=== PATIENT | female | born 1960 | race Caucasian/White ===

== ENCOUNTER 2019-07-15 15:33 | Inpatient (IN) | payer BC ==
[~2019-07-15] VITALS: Ht 165.1 cm; Wt 102.8 kg
[2019-07-15 21:16] VITALS: BP 140/63
[2019-07-15] MEDS ORDERED: GLUCAGON FOR INJ 1 MG VIAL (J1610) SC PRN (22:15)
[2019-07-15] MEDS ORDERED: DEXTROSE 50% 50 ML SYRINGE IV PRN (22:15)
[2019-07-15] MEDS ORDERED: GLUCOSE 4 GM CHEW TABLET PO PRN (22:15)
--- NOTE | 2019-07-15 22:15 | HPEPDOC ---
[facility] Medical History & Physical Date of Admission Jul 15, 2019 Date of Service: Jul 15, 2019 Attending Physician: DAVID SADLER MD History and Physical CHIEF COMPLAINT: Transferred from [facility] for GI bleed HISTORY OF PRESENT ILLNESS: 59-year-old female with past medical history of CVA, DVT (on Coumadin), CHF, hypertension, diabetes mellitus and hyperlipidemia is transferred from [facility] for GI bleed. Patient reports feeling fatigued with associated dyspnea for the past month, significantly worsening over the past 2 weeks, to the point where she had difficulty getting out of bed today. She went to [place], her hemoglobin was 6.9, patient's INR is 3.0 on Coumadin. Patient was transferred to [facility] for GI evaluation. Patient denies taking any NSAIDs or drinking excessive alcohol. Patient does report dark stool for the past 2 weeks, no bright red blood per rectum or hematemesis. Patient denies prior history of GI bleed, had a colonoscopy 4 years ago, normal as per patient. Patient has received 2 units of packed blood cells by [facility], no vitamin K or FFP was given as far as I can tell from the records. Patient denies any chest pain, nausea, vomiting, abdominal pain or diarrhea at this time. 10 point review of system is negative except for above PAST MEDICAL HISTORY: 1. CVA. 2. DVT. 3. CHF. 4. Hypertension. 5. Diabetes mellitus. 6. Hyperlipidemia PAST SURGICAL HISTORY: 1. Cholecystectomy. 2. Appendectomy. SOCIAL HISTORY: Smokes - one pack per day for 30 years Social alcohol use. Denies drug use FAMILY HISTORY: Mother had ovarian cancer ALLERGIES: Please see below. HOME MEDICATIONS: Please see below. PHYSICAL EXAMINATION: VITAL SIGNS: Please see below. GENERAL: No distress HEENT: Normocephalic, atraumatic, moist mucous membranes NECK: Supple CARDIOVASCULAR EXAMINATION: S1, S2, no murmurs RESPIRATORY EXAMINATION: Clear to auscultation, no wheezing ABDOMINAL EXAMINATION: Soft, nontender, nondistended, positive bowel sounds EXTREMITIES: Range of motion intact SKIN: No rash NEUROLOGICAL EXAMINATION: Alert and oriented 3, no focal deficits PSYCHIATRIC EXAMINATION: Calm and cooperative LABORATORY DATA: See below. IMAGING: CT head performed a [place], negative for acute intracranial pathology MICROBIOLOGY: Please see below. ASSESSMENT: 59-year-old female with multiple medical comorbidities is sent from [facility] for GI bleed, likely due to anticoagulation. PLAN: 1. GI bleed. Patient on Coumadin, INR 3.0, hemoglobin 6.9, received 2 units of packed red blood cells at [facility], vitamin K 5 mg by mouth 1, 4 units of FFP ordered, discussed with Dr. Moran (gastroneurologist), plan for EGD in the [facility] after INR has been reversed, patient is currently hemodynamically stable. Protonix 80 mg IV 1, followed by 40 mg twice a day, will keep patient nothing by mouth for now. 2. CVA. Continue statin 3. CHF. Hold diuretics for now, we'll monitor volume status given the patient has received packed red blood cells IV fluids and will be receiving FFP. We'll hold off on further IV fluids for now. 4. Diabetes mellitus. Hold home meds, sliding scale insulin every 6 hours. 5. Hypertension. We'll restart home meds when verified. DVT prophylaxis: SCDs/TEDs. GI prophylaxis: Protonix Vital Signs Vital Signs Date Time Temp Pulse Resp B/P (MAP) Pulse Ox O2 Delivery O2 Flow Rate FiO2 07/15/19 21:16 97.1 73 20 140/63 (88) 97 Room Air A-FIB/CHADSVASC A-FIB History Current/History of A-Fib/PAF?: No DAVID SADLER MD Jul 15, 2019 22:15
[2019-07-15] MEDS ORDERED: JANU100T PO (22:40)
[2019-07-15] MEDS ORDERED: ATOR40TA75 PO (22:40)
[2019-07-15] MEDS ORDERED: SLOWTAB2 PO (22:40)
[2019-07-15] MEDS ORDERED: LASI20TA3 PO (22:40)
[2019-07-15] MEDS ORDERED: FOLI400T PO (22:40)
[2019-07-15] MEDS ORDERED: ATEN100T PO (22:40)
[2019-07-15] MEDS ORDERED: GLIM2TAB4 PO (22:40)
[2019-07-15] MEDS ORDERED: B-COTAB25 PO (22:40)
[2019-07-15] MEDS ORDERED: FENO145T7 PO (22:40)
[2019-07-15] MEDS ORDERED: POTA1TAB23 PO (22:40)
[2019-07-15] MEDS ORDERED: TRUL0.5I SC (22:40)
[2019-07-15] MEDS ORDERED: GABA-843 PO (22:40)
[2019-07-15] MEDS ORDERED: PATIENT COMMENTS (22:43)
[2019-07-15 23:45] VITALS: BP 146/58
[2019-07-16] VITALS (14 sets, daily range): BP systolic 120–154; BP diastolic 50–64
[2019-07-16] MEDS ORDERED: PANTOPRAZOLE 40MG INJ (PROTONIX) (C9113) IV ONE
[2019-07-16] MEDS ORDERED: HumaLOG INSULIN (NovoLOG) PER UNIT SC ONE (01:00)
[2019-07-16] MEDS ORDERED: diphenhydrAMINE 25 MG CAP PO SCH (05:00)
[2019-07-16] MEDS: HumaLOG INSULIN (NovoLOG) PER UNIT SC SCH ×4 (06:00→18:00)
[2019-07-16] MEDS ORDERED: HYDROCORTISONE 1% OINTMENT 30GM TOP PRN (06:15)
[2019-07-16 07:15] LABS: HEMATOCRIT 24.6 % (36.0-47.0); HEMOGLOBIN 7.8 g/dl (12.0-15.5); MEAN CORPUSCULAR HEMOGLOBIN 31.1 pg (27.0-33.0); MEAN CORPUSCULAR HGB CONC 31.7 g/dl (32.0-36.5); PLATELET COUNT, AUTOMATED 230 10^3/uL (150-450); RED BLOOD COUNT 2.51 10^6/uL (4.00-5.40)
[2019-07-16 07:27] LABS: PROTHROMBIN TIME 51.9 SECONDS (11.8-14.0)
[2019-07-16 07:28] LABS: PARTIAL THROMBOPLASTIN TIME 50.6 SECONDS (25.0-38.4)
[2019-07-16 07:46] LABS: BILIRUBIN,TOTAL 0.4 MG/DL (0.2-1.0); CALCIUM LEVEL 8.9 MG/DL (8.5-10.1); CREATININE FOR GFR 1.59 MG/DL (0.55-1.30); GLOMERULAR FILTRATION RATE 35.6 (>51); INR 5.7; MAGNESIUM LEVEL 1.9 MG/DL (1.8-2.4); POTASSIUM SERUM 4.2 MEQ/L (3.5-5.1); TOTAL PROTEIN 6.3 GM/DL (6.4-8.2)
[2019-07-16] MEDS: PANTOPRAZOLE 40MG INJ (PROTONIX) (C9113) IV SCH ×2 (07:55→20:54)
[2019-07-16] MEDS ORDERED: PHYTONADIONE 5 MG TAB PO ONE ×2 (09:00)
[2019-07-16] MEDS ORDERED: diphenhydrAMINE INJ 50MG/ML VIAL (J1200) IV ONE (09:00)
[2019-07-16] MEDS: GABAPENTIN 300 MG CAP PO SCH ×2 (09:00→20:54)
[2019-07-16] MEDS ORDERED: FUROSEMIDE 40 MG/4 ML VIAL (J1940) IV ONE (12:00)
--- NOTE | 2019-07-16 12:39 | IPNPDOC ---
Date Seen The patient was seen on 07/16/19. Progress Note HISTORY OF PRESENT ILLNESS: 59-year-old female with past medical history of CVA, DVT (on Coumadin), CHF, hypertension, diabetes mellitus and hyperlipidemia is transferred from [facility] for GI bleed. Patient reports feeling fatigued with associated dyspnea for the past month, significantly worsening over the past 2 weeks, to the point where she had difficulty getting out of bed today. She went to [place], her hemoglobin was 6.9, patient's INR is 3.0 on Coumadin. Patient was transferred to [facility] for GI evaluation. Patient denies taking any NSAIDs or drinking excessive alcohol. Patient does report dark stool for the past 2 weeks, no bright red blood per rectum or he matemesis. Patient denies prior history of GI bleed, had a colonoscopy 4 years ago, normal as per patient. Patient has received 2 units of packed blood cells by [facility], no vitamin K or FFP was given as far as I can tell from the records. Patient denies any chest pain, nausea, vomiting, abdominal pain or diarrhea at this time. 07/16/19 Patient seen in the morning, comfortable, reports fatigue, did not get any sleep overnight. Patient has not had any bowel movement or episodes of vomiting since admission. Patient developed itching after receiving part of her FFP last night, FFP infusion was held after the first unit. She denies any shortness of breath, chest pain, nausea, vomiting, abdominal pain or diarrhea at this time. 10 point review of system is negative except for above PHYSICAL EXAMINATION: VITAL SIGNS: Please see below. GENERAL: No distress HEENT: Normocephalic, atraumatic, moist mucous membranes NECK: Supple CARDIOVASCULAR EXAMINATION: S1, S2, no murmurs RESPIRATORY EXAMINATION: Scattered rhonchi, no wheezing ABDOMINAL EXAMINATION: Soft, nontender, nondistended, positive bowel sounds EXTREMITIES: Trace lower extremity edema SKIN: No rash NEUROLOGICAL EXAMINATION: Alert and oriented 3, no focal deficits PSYCHIATRIC EXAMINATION: Calm and cooperative LABORATORY DATA: See below. IMAGING: CT head performed a [place], negative for acute intracranial pathology MICROBIOLOGY: Please see below. ASSESSMENT: 59-year-old female with multiple medical comorbidities is sent from [facility] for GI bleed, likely due to anticoagulation. PLAN: 1. GI bleed. Patient on Coumadin, INR up to 5.7 today, hemoglobin 7.8, has received 2 units of packed cells so far and 1 unit of FFP, will transfuse for additional units of FFP, and another dose of vitamin K 5 mg by mouth, recheck CBC and coags in the afternoon, plan for EGD later today if INR less than 1.5, continue Protonix 40 mg IV twice a day, nothing by mouth. 2. CVA. Continue statin 3. CHF. Gave 1 dose of Lasix 40 mg IV with FFP, restarted Lasix 20 mg per day. 4. Diabetes mellitus. Hold home meds, sliding scale insulin every 6 hours. 5. Hypertension. Restarted home atenolol 100 mg per day DVT prophylaxis: SCDs/TEDs. GI prophylaxis: Protonix VS, I&O, 24H, Fishbone Vital Signs/I&O Vital Signs Date Time Temp Pulse Resp B/P (MAP) Pulse Ox O2 Delivery O2 Flow Rate FiO2 07/16/19 12:26 97.7 55 17 131/51 100 Room Air I&O- Last 24 Hours up to 6 AM 07/16/19 06:00 Intake Total 521 ml Output Total 0 ml Balance 521 ml Laboratory Data 24H LABS Laboratory Tests 2 07/15/19 23:45: Bedside Glucose (Misc Panel) 252H 07/16/19 06:20: Bedside Glucose (Misc Panel) 89 07/16/19 06:57: Nucleated Red Blood Cells % (auto) 0.0, Prothrombin Time 51.9H, Prothromb Time International Ratio 5.70*H, Activated Partial Thromboplast Time 50.6H, Anion Gap 5L, Glomerular Filtration Rate 35.6L, Calcium Level 8.9, Magnesium Level 1.9, Total Bilirubin 0.4, Aspartate Amino Transf (AST/SGOT) 16, Alanine Aminotransferase (ALT/SGPT) 18, Alkaline Phosphatase 48, Total Protein 6.3L, Albumin 3.0L, Albumin/Globulin Ratio 0.91L 07/16/19 11:34: Bedside Glucose (Misc Panel) 65L CBC/BMP Laboratory Tests 07/16/19 06:57 DAVID SADLER MD Jul 16, 2019 12:39
[2019-07-16 12:51] LABS: HEMATOCRIT 23.4 % (36.0-47.0); HEMOGLOBIN 7.4 g/dl (12.0-15.5); MEAN CORPUSCULAR HEMOGLOBIN 31.4 pg (27.0-33.0); MEAN CORPUSCULAR HGB CONC 31.6 g/dl (32.0-36.5); MEAN CORPUSCULAR VOLUME 99.2 fl (80.0-96.0); PLATELET COUNT, AUTOMATED 222 10^3/uL (150-450); RED BLOOD COUNT 2.36 10^6/uL (4.00-5.40); WHITE BLOOD COUNT 8.1 10^3/uL (4.0-10.0)
[2019-07-16 13:05] LABS: INR 3.61
[2019-07-16] MEDS: MAGNESIUM CHLORIDE 64 MG TABCR (SLO MAG) PO SCH (13:53)
[2019-07-16] MEDS: POTASSIUM CHLORIDE 10 MEQ SR TABLET PO SCH (13:53)
[2019-07-16] MEDS: atenoloL 50 MG TAB PO SCH (13:54)
[2019-07-16] MEDS: FUROSEMIDE 20 MG TAB PO SCH (13:54)
[2019-07-16] MEDS ORDERED: DEXTROSE 50% 50 ML SYRINGE IV STA (15:14)
[2019-07-16 19:21] LABS: HEMATOCRIT 23.7 % (36.0-47.0); HEMOGLOBIN 7.3 g/dl (12.0-15.5); MEAN CORPUSCULAR HEMOGLOBIN 30.3 pg (27.0-33.0); MEAN CORPUSCULAR HGB CONC 30.8 g/dl (32.0-36.5); MEAN CORPUSCULAR VOLUME 98.3 fl (80.0-96.0); PLATELET COUNT, AUTOMATED 232 10^3/uL (150-450); RED BLOOD COUNT 2.41 10^6/uL (4.00-5.40); WHITE BLOOD COUNT 7.8 10^3/uL (4.0-10.0)
[2019-07-16 19:36] LABS: INR 1.94; PROTHROMBIN TIME 21.9 SECONDS (11.8-14.0)
[2019-07-16] MEDS: ATORVASTATIN 20 MG TAB PO SCH (20:54)
[2019-07-16] MEDS: FENOFIBRATE 145 MG TAB (TRICOR) PO SCH (20:54)
--- NOTE | 2019-07-16 21:08 | CR ---
DATE OF CONSULTATION: 07/16/2019 STATUS OF PATIENT: Inpatient. REQUESTING PHYSICIAN: Hospitalist service. REASON FOR CONSULTATION: Anemia and supratherapeutic international normalized ratio (INR) - on Coumadin. HISTORY OF PRESENT ILLNESS: This is a 59-year-old female with a medical history significant for deep venous thrombosis. She also has a history of mini stroke/CVA for which she has been on Coumadin for many years. She also has a history of hypertension, diabetes and hyperlipidemia. She presented to [facility] with progressive weakness, fatigue to the point that she was unable to get out of bed or sit up in a chair. She was evaluated at [facility] Emergency Room (ER) where she was noted to have a hemoglobin of 6.9 and a supratherapeutic INR level on Coumadin. She has had chronic acid reflux for which she "eats Tums all day." She does not take any nonsteroidal analgesics. The patient did have some dark/black stools for 2-3 days prior to presenting to [facility]. She was transferred to [facility] for further management. PAST MEDICAL HISTORY: Deep vein thrombosis (DVT)., mini strokes, CVA, congestive heart failure (CHF), diabetes, hyperlipidemia. SURGICAL HISTORY: Cholecystectomy, appendectomy, colonoscopy 4 years ago as per patient's history, which was negative. SOCIAL HISTORY; Positive for tobacco. Positive for one to two alcoholic (dictation cut off). FAMILY HISTORY: Negative for colorectal carcinoma, inflammatory bowel disease. It is positive for ovarian cancer in her mother. MEDICATIONS AT HOME: Atenolol, atorvastatin, Tricor, Lasix, gabapentin. PHYSICAL EXAMINATION: Temperature 98.4, pulse 56, respiratory rate 18, blood pressure 152/58. General: She is awake, alert, oriented times three, in no acute distress. She is nontoxic in appearance. Head, eyes, ears, nose and throat: Grossly without abnormality. There is no oral thrush. Neck is supple. No lymphadenopathy, thyromegaly. Chest is clear bilaterally. Heart is regular rate and rhythm, S1, S2. No murmurs or gallops. Abdomen is soft, nontender. Good bowel sounds. No masses palpable (dictation cut off). Neurologic: Negative for focal numbness or weakness. She moves all extremities equally and bilaterally. Her speech is clear. Her ambulation is normal. LABORATORY: Hemoglobin 7.8/7.4/7.3; this is after two units of packed red blood cells (RBCs) prior to arriving at [facility]. Coagulation profile is PT/INR 5.70/3.61/1.94 today. BUN 34, creatinine 1.59. IMPRESSION: 1. Acute posthemorrhagic anemia, supratherapeutic INR in a patient with a history of a CVA remotely and DVT, chronically on Coumadin. 2. Melenic stools and elevation of BUN. RECOMMENDATIONS: 1. Will repeat INR tomorrow, and I will set her up for an esophagogastroduodenoscopy (EGD) to evaluate for peptic ulcer disease, etc. In the meantime, I would recommend she continue on clear liquids and continue on a proton pump inhibitor while we await endoscopy. 2. Depending on results of upper endoscopy, a repeat colonoscopy may be considered, although she had one approximately 4 years ago. This will need to be updated only if her upper endoscopy is completely negative for a source of bleeding.
[2019-07-17] VITALS (7 sets, daily range): BP systolic 129–149; BP diastolic 53–67
[2019-07-17] MEDS: HumaLOG INSULIN (NovoLOG) PER UNIT SC SCH ×4 (06:00→18:00)
[2019-07-17 06:39] LABS: HEMATOCRIT 24.8 % (36.0-47.0); HEMOGLOBIN 7.8 g/dl (12.0-15.5); MEAN CORPUSCULAR HEMOGLOBIN 31.3 pg (27.0-33.0); MEAN CORPUSCULAR HGB CONC 31.5 g/dl (32.0-36.5); MEAN CORPUSCULAR VOLUME 99.6 fl (80.0-96.0); PLATELET COUNT, AUTOMATED 227 10^3/uL (150-450); RED BLOOD COUNT 2.49 10^6/uL (4.00-5.40); WHITE BLOOD COUNT 6.9 10^3/uL (4.0-10.0)
[2019-07-17 07:01] LABS: CALCIUM LEVEL 8.8 MG/DL (8.5-10.1); CREATININE FOR GFR 1.89 MG/DL (0.55-1.30); GLOMERULAR FILTRATION RATE 29.2 (>51); MAGNESIUM LEVEL 2.2 MG/DL (1.8-2.4); PHOSPHORUS LEVEL 3.8 MG/DL (2.5-4.9); POTASSIUM SERUM 3.5 MEQ/L (3.5-5.1)
[2019-07-17] MEDS: PANTOPRAZOLE 40MG INJ (PROTONIX) (C9113) IV SCH ×2 (08:38→21:30)
[2019-07-17] MEDS: atenoloL 50 MG TAB PO SCH (08:41)
[2019-07-17] MEDS: GABAPENTIN 300 MG CAP PO SCH ×2 (09:00→21:30)
[2019-07-17] MEDS: FUROSEMIDE 20 MG TAB PO SCH (09:00)
[2019-07-17] MEDS ORDERED: FLUBLOK(EGG FREE)(QUAD)INFLUENZA VACC 0.5ML SYRINGE (90682)18YRS&OLDER IM ONE (09:00)
[2019-07-17] MEDS: MAGNESIUM CHLORIDE 64 MG TABCR (SLO MAG) PO SCH (09:00)
[2019-07-17] MEDS: POTASSIUM CHLORIDE 10 MEQ SR TABLET PO SCH (09:00)
[2019-07-17 09:41] LABS: INR 1.72; PROTHROMBIN TIME 19.9 SECONDS (11.8-14.0)
--- NOTE | 2019-07-17 10:10 | REP ---
Ultrasound: The right kidney measures 10.7 x 3 point and 4.1 cm. Left kidney measures 10.0 x 3.9 x 5 point centimeters. The kidneys are normal size. Renal cortical echogenicity is normal bilaterally. There is renal cortical thinning bilaterally. There are no renal calculi. There is no hydronephrosis. There is a 1.4 cm right renal Bosniak type 1 cyst at the lower pole. There are no solid renal masses on the right on the left. Bladder: The bladder contains only 19 ml of fluid, is nondistended and cannot be further evaluated. Impression: 1.4 cm right renal lower pole cyst. Bilateral renal cortical thinning. Otherwise, negative renal ultrasound. Electronically Signed by Samuel Pitts MD 07/17/2019 10:01 A
[2019-07-17] MEDS ORDERED: fentaNYL 100 MCG/2 ML INJECTION (J3010) As Ordered ONE (16:43)
[2019-07-17] MEDS ORDERED: LIDOCAINE 2% INJ 100 MG/5 ML SDV (FOR ANES.) As Ordered ONE (16:43)
[2019-07-17] MEDS ORDERED: propofoL 200 MG/20 ML VIAL As Ordered ONE ×2 (16:43→17:19)
[2019-07-17] MEDS ORDERED: ePHEDrine SULFATE 25 MG/5 ML(5MG/ML) SYRINGE As Ordered ONE (17:23)
--- NOTE | 2019-07-17 17:29 | ROOR ---
Patient Name: Alessandra Barber Procedure Date: 07/17/2019 4:06 PM Date of : 1960 Age: 59 Gender: Female Note Status: Finalized Procedure: Upper GI endoscopy Indications: Acute post hemorrhagic anemia Providers: Clement CAR MD Referring MD: 2. Inpatient 2. Inpatient Requesting Provider: Medicines: Monitored Anesthesia Care Complications: No immediate complications. Procedure: Pre-Anesthesia Assessment: - The heart rate, respiratory rate, oxygen saturations, blood pressure, adequacy of pulmonary ventilation, and response to care were monitored throughout the procedure. The Endoscope was introduced through the mouth, and advanced to the third part of duodenum. The upper GI endoscopy was accomplished without difficulty. The patient tolerated the procedure well. Findings: The examined esophagus was normal. The entire examined stomach was normal. The cardia and gastric fundus were normal on retroflexion. Patchy atrophic mucosa was found in the first portion of the duodenum. Biopsies for histology were taken with a cold forceps for evaluation of celiac disease. The exam of the duodenum was otherwise normal. Impression: - Normal esophagus. - Normal stomach. - Mild duodenitis and scattered duodenal mucosal atrophy. Biopsied. - No bleeding source identified on this EGD exam. Recommendation: - Perform a colonoscopy tomorrow. Clement Car MD Clement CAR MD 07/17/2019 5:28:59 PM Electronically signed by Clement CAR MD Number of Addenda: 0 Note Initiated On: 07/17/2019 4:06 PM Estimated Blood Loss: Estimated blood loss: none.
[2019-07-17] MEDS ORDERED: MOM 30ML SUSPENSION UDC PO ONE (17:30)
--- NOTE | 2019-07-17 17:31 | IPNPDOC ---
Date Seen The patient was seen on 07/17/19. Progress Note HISTORY OF PRESENT ILLNESS: 59-year-old female with past medical history of CVA, DVT (on Coumadin), CHF, hypertension, diabetes mellitus and hyperlipidemia is transferred from [facility] for GI bleed. Patient reports feeling fatigued with associated dyspnea for the past month, significantly worsening over the past 2 weeks, to the point where she had difficulty getting out of bed today. She went to [place], her hemoglobin was 6.9, patient's INR is 3.0 on Coumadin. Patient was transferred to [facility] for GI evaluation. Patient denies taking any NSAIDs or drinking excessive alcohol. Patient does report dark stool for the past 2 weeks, no bright red blood per rectum or he matemesis. Patient denies prior history of GI bleed, had a colonoscopy 4 years ago, normal as per patient. Patient has received 2 units of packed blood cells by [facility], no vitamin K or FFP was given as far as I can tell from the records. Patient denies any chest pain, nausea, vomiting, abdominal pain or diarrhea at this time. 07/16/19 Patient seen in the morning, comfortable, reports fatigue, did not get any sleep overnight. Patient has not had any bowel movement or episodes of vomiting since admission. Patient developed itching after receiving part of her FFP last night, FFP infusion was held after the first unit. She denies any shortness of breath, chest pain, nausea, vomiting, abdominal pain or diarrhea at this time. 07/17/19 Patient comfortable, no acute events overnight, hemoglobin has remained stable, scheduled for EGD later today. 10 point review of system is negative except for above PHYSICAL EXAMINATION: VITAL SIGNS: Please see below. GENERAL: No distress HEENT: Normocephalic, atraumatic, moist mucous membranes NECK: Supple CARDIOVASCULAR EXAMINATION: S1, S2, no murmurs RESPIRATORY EXAMINATION: Scattered rhonchi, no wheezing ABDOMINAL EXAMINATION: Soft, nontender, nondistended, positive bowel sounds EXTREMITIES: Trace lower extremity edema SKIN: No rash NEUROLOGICAL EXAMINATION: Alert and oriented 3, no focal deficits PSYCHIATRIC EXAMINATION: Calm and cooperative LABORATORY DATA: See below. IMAGING: CT head performed a [place], negative for acute intracranial pathology MICROBIOLOGY: Please see below. ASSESSMENT: 59-year-old female with multiple medical comorbidities is sent from [place] [facility] for GI bleed, likely due to anticoagulation. PLAN: 1. GI bleed. Patient on Coumadin, INR down to 1.7 today, hemoglobin 7.8, has received 2 units of packed cells and 5 units of FFP in total, along with 10 mg of vitamin K total, H&H stable, plan for EGD later today, continue Protonix 40 mg IV twice a day, nothing by mouth. 2. CVA. Continue statin 3. CHF. Continue Lasix 20 mg per day. 4. Diabetes mellitus. Hold home meds, sliding scale insulin every 6 hours. 5. Hypertension. Atenolol being held due to bradycardia DVT prophylaxis: SCDs/TEDs. GI prophylaxis: Protonix VS, I&O, 24H, Fishbone Vital Signs/I&O Vital Signs Date Time Temp Pulse Resp B/P (MAP) Pulse Ox O2 Delivery O2 Flow Rate FiO2 07/17/19 14:00 97.5 62 15 148/67 (94) 100 Room Air I&O- Last 24 Hours up to 6 AM 07/17/19 05:59 Intake Total 1731 ml Output Total 3350 ml Balance -1619 ml Laboratory Data 24H LABS Laboratory Tests 2 07/16/19 18:13: Bedside Glucose (Misc Panel) 73 07/16/19 19:09: Nucleated Red Blood Cells % (auto) 0.0, Prothrombin Time 21.9H, Prothromb Time International Ratio 1.94 07/17/19 00:12: Bedside Glucose (Misc Panel) 77 07/17/19 06:22: Nucleated Red Blood Cells % (auto) 0.0, Anion Gap 7L, Glomerular Filtration Rate 29.2L, Calcium Level 8.8, Phosphorus Level 3.8, Magnesium Level 2.2 07/17/19 09:18: Prothrombin Time 19.9H, Prothromb Time International Ratio 1.72 07/17/19 11:48: Bedside Glucose (Misc Panel) 108H CBC/BMP Laboratory Tests 07/16/19 19:09 07/17/19 06:22 DAVID SADLER MD Jul 17, 2019 17:31
[2019-07-17] MEDS ORDERED: POLYETHYLENE GLYCOL (MIRALAX) 238GM BOTTLE PO ONE (18:00)
[2019-07-17] MEDS: ATORVASTATIN 20 MG TAB PO SCH (21:30)
[2019-07-17] MEDS: FENOFIBRATE 145 MG TAB (TRICOR) PO SCH (21:30)
[2019-07-18 02:00] VITALS: BP 125/51
[2019-07-18 06:00] VITALS: BP 114/41
[2019-07-18] MEDS: HumaLOG INSULIN (NovoLOG) PER UNIT SC SCH ×4 (06:00→17:34)
[2019-07-18] MEDS ORDERED: POLYETHYLENE GLYCOL (MIRALAX) 238GM BOTTLE PO ONE (06:00)
[2019-07-18 07:13] LABS: HEMATOCRIT 25.2 % (36.0-47.0); HEMOGLOBIN 7.9 g/dl (12.0-15.5); MEAN CORPUSCULAR HGB CONC 31.3 g/dl (32.0-36.5); MEAN CORPUSCULAR VOLUME 98.8 fl (80.0-96.0); PLATELET COUNT, AUTOMATED 244 10^3/uL (150-450); RED BLOOD COUNT 2.55 10^6/uL (4.00-5.40); WHITE BLOOD COUNT 7.2 10^3/uL (4.0-10.0)
[2019-07-18 07:25] LABS: INR 1.61; PROTHROMBIN TIME 18.9 SECONDS (11.8-14.0)
[2019-07-18 07:32] LABS: CALCIUM LEVEL 8.8 MG/DL (8.5-10.1); CREATININE FOR GFR 1.74 MG/DL (0.55-1.30); GLOMERULAR FILTRATION RATE 32.1 (>51); MAGNESIUM LEVEL 2.4 MG/DL (1.8-2.4); PHOSPHORUS LEVEL 3.4 MG/DL (2.5-4.9); POTASSIUM SERUM 3.4 MEQ/L (3.5-5.1)
[2019-07-18] MEDS: atenoloL 50 MG TAB PO SCH (09:00)
[2019-07-18] MEDS: MAGNESIUM CHLORIDE 64 MG TABCR (SLO MAG) PO SCH (09:10)
[2019-07-18] MEDS: GABAPENTIN 300 MG CAP PO SCH ×2 (09:11→21:09)
[2019-07-18] MEDS: PANTOPRAZOLE 40MG INJ (PROTONIX) (C9113) IV SCH ×2 (09:11→21:00)
[2019-07-18] MEDS: POTASSIUM CHLORIDE 10 MEQ SR TABLET PO SCH (09:11)
[2019-07-18] MEDS: FUROSEMIDE 20 MG TAB PO SCH (09:11)
[2019-07-18] MEDS ORDERED: POTASSIUM CHLORIDE 10 MEQ SR TABLET PO ONE (09:30)
[2019-07-18 10:00] VITALS: BP 129/57
[2019-07-18 14:00] VITALS: BP 144/67
[2019-07-18] MEDS ORDERED: propofoL 200 MG/20 ML VIAL As Ordered ONE (18:28)
[2019-07-18] MEDS ORDERED: LIDOCAINE 2% INJ 100 MG/5 ML SDV (FOR ANES.) As Ordered ONE (18:28)
--- NOTE | 2019-07-18 18:33 | IPNPDOC ---
Date Seen The patient was seen on 07/18/19. Progress Note HISTORY OF PRESENT ILLNESS: 59-year-old female with past medical history of CVA, DVT (on Coumadin), CHF, hypertension, diabetes mellitus and hyperlipidemia is transferred from [facility] for GI bleed. Patient reports feeling fatigued with associated dyspnea for the past month, significantly worsening over the past 2 weeks, to the point where she had difficulty getting out of bed today. She went to [place], her hemoglobin was 6.9, patient's INR is 3.0 on Coumadin. Patient was transferred to [facility] for GI evaluation. Patient denies taking any NSAIDs or drinking excessive alcohol. Patient does report dark stool for the past 2 weeks, no bright red blood per rectum or he matemesis. Patient denies prior history of GI bleed, had a colonoscopy 4 years ago, normal as per patient. Patient has received 2 units of packed blood cells by [facility], no vitamin K or FFP was given as far as I can tell from the records. Patient denies any chest pain, nausea, vomiting, abdominal pain or diarrhea at this time. 07/16/19 Patient seen in the morning, comfortable, reports fatigue, did not get any sleep overnight. Patient has not had any bowel movement or episodes of vomiting since admission. Patient developed itching after receiving part of her FFP last night, FFP infusion was held after the first unit. She denies any shortness of breath, chest pain, nausea, vomiting, abdominal pain or diarrhea at this time. 07/17/19 Patient comfortable, no acute events overnight, hemoglobin has remained stable, scheduled for EGD later today. 07/18/19 Patient seen in the morning, comfortable in bed, no acute events overnight, without any complaints at this time, no longer bleeding, EGD yesterday unable to find source of bleeding, scheduled for colonoscopy today, underwent bowel prep overnight. 10 point review of system is negative except for above PHYSICAL EXAMINATION: VITAL SIGNS: Please see below. GENERAL: No distress HEENT: Normocephalic, atraumatic, moist mucous membranes NECK: Supple CARDIOVASCULAR EXAMINATION: S1, S2, no murmurs RESPIRATORY EXAMINATION: Scattered rhonchi, no wheezing ABDOMINAL EXAMINATION: Soft, nontender, nondistended, positive bowel sounds EXTREMITIES: Trace lower extremity edema SKIN: No rash NEUROLOGICAL EXAMINATION: Alert and oriented 3, no focal deficits PSYCHIATRIC EXAMINATION: Calm and cooperative LABORATORY DATA: See below. IMAGING: CT head performed a [place], negative for acute intracranial pathology MICROBIOLOGY: Please see below. ASSESSMENT: 59-year-old female with multiple medical comorbidities is sent from [facility] for GI bleed, likely due to anticoagulation. PLAN: 1. GI bleed. Patient on Coumadin, has received 2 units of packed cells and 5 units of FFP in total, along with 10 mg of vitamin K total, H&H stable, EGD unable to find source of bleed, scheduled for colonoscopy later today, continue Protonix 40 mg IV twice a day, nothing by mouth. 2. CVA. Continue statin 3. CHF. Continue Lasix 20 mg per day. 4. Diabetes mellitus. Hold home meds, sliding scale insulin every 6 hours. 5. Hypertension. Atenolol being held due to bradycardia DVT prophylaxis: SCDs/TEDs. GI prophylaxis: Protonix VS, I&O, 24H, Fishbone Vital Signs/I&O Vital Signs Date Time Temp Pulse Resp B/P (MAP) Pulse Ox O2 Delivery O2 Flow Rate FiO2 07/18/19 14:00 97.3 58 18 144/67 (92) 99 Room Air I&O- Last 24 Hours up to 6 AM 07/18/19 06:00 Intake Total 420 ml Output Total 0 ml Balance 420 ml Laboratory Data 24H LABS Laboratory Tests 2 07/17/19 23:56: Bedside Glucose (Misc Panel) 74 07/18/19 05:58: Bedside Glucose (Misc Panel) 134H 07/18/19 06:54: Nucleated Red Blood Cells % (auto) 0.0, Prothrombin Time 18.9H, Prothromb Time International Ratio 1.61, Anion Gap 7L, Glomerular Filtration Rate 32.1L, Calcium Level 8.8, Phosphorus Level 3.4, Magnesium Level 2.4 07/18/19 11:47: Bedside Glucose (Misc Panel) 179H 07/18/19 16:35: Bedside Glucose (Misc Panel) 112H CBC/BMP Laboratory Tests 07/18/19 06:54 DAVID SADLER MD Jul 18, 2019 18:33
--- NOTE | 2019-07-18 19:31 | ROOR ---
Patient Name: Alessandra Barber Procedure Date: 07/18/2019 6:39 PM Date of : 1960 Age: 59 Gender: Female Note Status: Finalized Procedure: Colonoscopy Indications: Acute post hemorrhagic anemia Providers: Clement CAR MD Referring MD: 2. Inpatient 2. Inpatient, [facility] SHIRA Mendoza MD Requesting Provider: Medicines: Monitored Anesthesia Care Complications: No immediate complications. Procedure: Pre-Anesthesia Assessment: - The heart rate, respiratory rate, oxygen saturations, blood pressure, adequacy of pulmonary ventilation, and response to care were monitored throughout the procedure. The Colonoscope was introduced through the anus and advanced to 10 cm into the ileum. The colonoscopy was performed without difficulty. The patient tolerated the procedure well. The quality of the bowel preparation was good. Findings: The perianal and digital rectal examinations were normal. Two sessile polyps were found in the transverse colon and ascending colon. The polyps were diminutive in size. These polyps were removed with a cold snare. Resection and retrieval were complete. Mild sigmoid diverticulosis and small internal hemorrhoids. Retroflexion in the right colon was performed. The exam was otherwise normal throughout the examined colon. The terminal ileum appeared normal. Bleeding source NOT determined on this colonoscopy. Impression: - Two diminutive polyps in the transverse colon and in the ascending colon, removed with a cold snare. Resected and retrieved. - Minimal early sigmoid diverticulosis and small internal hemorrhoids. - The colon is otherwise normal. - The examined portion of the ileum was normal. - Bleeding source NOT determined on this colonoscopy. Recommendation: - To visualize the small bowel, perform video capsule endoscopy. (outpatient) - My office will call you in the next few days to set you up for this study/exam. - The patient will be observed post-procedure, until all discharge criteria are met. - Return patient to [facility] for possible discharge same day. - I would prefer holding anticoagulation completely for 1 week. However if anticoagulation needed urgently, then resume coumadin and maintain INR on lower side of therapeutic range. Clement Car MD Clement CAR MD 07/18/2019 7:31:11 PM Electronically signed by Clement CAR MD Number of Addenda: 0 Note Initiated On: 07/18/2019 6:39 PM Estimated Blood Loss: Estimated blood loss: none.
[2019-07-18] MEDS ORDERED: METOCLOPRAMIDE INJ 10MG/2ML VIAL (J2765) IV PRN (20:00)
[2019-07-18] MEDS ORDERED: LR 1,000 ML IV SCH (20:00)
[2019-07-18] MEDS ORDERED: ONDANSETRON 4MG/2ML VIAL (J2405) IV PRN (20:00)
[2019-07-18] MEDS ORDERED: fentaNYL 100 MCG/2 ML INJECTION (J3010) IV PRN (20:00)
[2019-07-18 20:15] VITALS: BP 152/65
[2019-07-18] MEDS ORDERED: HumaLOG INSULIN (NovoLOG) PER UNIT SC SCH (21:00)
[2019-07-18] MEDS: ATORVASTATIN 20 MG TAB PO SCH (21:09)
[2019-07-18] MEDS: FENOFIBRATE 145 MG TAB (TRICOR) PO SCH (21:09)
[2019-07-18 22:00] VITALS: BP 125/48
[2019-07-19 06:00] VITALS: BP 128/47
[2019-07-19 06:14] LABS: HEMATOCRIT 25.3 % (36.0-47.0); HEMOGLOBIN 7.9 g/dl (12.0-15.5); MEAN CORPUSCULAR HEMOGLOBIN 31.6 pg (27.0-33.0); MEAN CORPUSCULAR HGB CONC 31.2 g/dl (32.0-36.5); MEAN CORPUSCULAR VOLUME 101.2 fl (80.0-96.0); PLATELET COUNT, AUTOMATED 221 10^3/uL (150-450); WHITE BLOOD COUNT 5.6 10^3/uL (4.0-10.0)
[2019-07-19 06:27] LABS: INR 1.56; PROTHROMBIN TIME 18.4 SECONDS (11.8-14.0)
[2019-07-19 06:37] LABS: CALCIUM LEVEL 9.2 MG/DL (8.5-10.1); CREATININE FOR GFR 1.44 MG/DL (0.55-1.30); GLOMERULAR FILTRATION RATE 39.9 (>51); MAGNESIUM LEVEL 2.2 MG/DL (1.8-2.4); PHOSPHORUS LEVEL 3.3 MG/DL (2.5-4.9); POTASSIUM SERUM 3.8 MEQ/L (3.5-5.1)
[2019-07-19] MEDS ORDERED: HumaLOG INSULIN (NovoLOG) PER UNIT SC SCH (07:30)
[2019-07-19] MEDS: HumaLOG INSULIN (NovoLOG) PER UNIT SC SCH ×3 (07:30→11:57)
[2019-07-19] MEDS: MAGNESIUM CHLORIDE 64 MG TABCR (SLO MAG) PO SCH (08:06)
[2019-07-19] MEDS: PANTOPRAZOLE 40MG INJ (PROTONIX) (C9113) IV SCH ×2 (08:07→08:13)
[2019-07-19] MEDS: FUROSEMIDE 20 MG TAB PO SCH (08:08)
[2019-07-19] MEDS: POTASSIUM CHLORIDE 10 MEQ SR TABLET PO SCH (08:08)
[2019-07-19] MEDS: GABAPENTIN 300 MG CAP PO SCH (08:08)
[2019-07-19 08:10] VITALS: BP 128/51
[2019-07-19] MEDS: atenoloL 50 MG TAB PO SCH (08:10)
[2019-07-19] MEDS ORDERED: POTASSIUM CHLORIDE 10 MEQ SR TABLET PO ONE (10:00)
[2019-07-19] MEDS ORDERED: PROT1TAB2 PO (12:43)
[2019-07-19] MEDS ORDERED: LASI20TA3 PO (15:55)
--- NOTE | 2019-07-19 18:23 | DS.PDOC ---
Discharge Summary General Date of Admission Jul 15, 2019 at 21:17 Date of Discharge 07/19/19 Attending Physician: DAVID SADLER MD Discharge Summary PROCEDURES PERFORMED DURING STAY: None. ADMITTING DIAGNOSES: 1. GI bleed. DISCHARGE DIAGNOSES: 1. GI bleed. COMPLICATIONS/CHIEF COMPLAINT: G.i. Bleed. HISTORY OF PRESENT ILLNESS: 59-year-old female with past medical history of DVT on Coumadin, was admitted for GI bleed. Patient received a total of 2 units packed blood cells and 5 units of FFP along with 10 mg of vitamin K to correct her hemoglobin and INR. Patient's H&H has remained stable since admission, no further signs of bleeding. Patient underwent EGD and colonoscopy, unable to find source of patient's bleed. Patient is advised to follow up outpatient with GI and undergo a capsule endoscopy. Patient is currently clinically and hemodynamically stable for discharge and outpatient follow-up. Patient will also be sent home on Protonix. Patient is advised to discontinue Coumadin at this time, follow with PCP to reevaluate anticoagulation. HOSPITAL COURSE: As above. DISCHARGE MEDICATIONS: Please see below. ALLERGIES: Please see below. PHYSICAL EXAMINATION: VITAL SIGNS: Please see below. GENERAL: No distress HEENT: Normocephalic, atraumatic, moist mucous membranes NECK: Supple CARDIOVASCULAR EXAMINATION: S1, S2, no murmurs RESPIRATORY EXAMINATION: Clear to auscultation, no wheezing ABDOMINAL EXAMINATION: Soft, nontender, nondistended, positive bowel sounds EXTREMITIES: Range of motion intact SKIN: No rash NEUROLOGICAL EXAMINATION: Alert and oriented 3, no focal deficits PSYCHIATRIC EXAMINATION: Calm and cooperative LABORATORY DATA: Please see below. PROGNOSIS: Fair ACTIVITY: As tolerated. DIET: Cardiac DISCHARGE PLAN: Follow-up with GI and PCP within 1-2 weeks DISPOSITION: 01 Home, Self-Care. DISCHARGE INSTRUCTIONS: 1. As above. DISCHARGE CONDITION: Stable. TIME SPENT ON DISCHARGE: Greater than 33 minutes. Vital Signs/I&Os Vital Signs Date Time Temp Pulse Resp B/P (MAP) Pulse Ox O2 Delivery O2 Flow Rate FiO2 07/19/19 08:10 68 128/51 07/19/19 06:00 98.3 16 94 Room Air I&O- Last 24 Hours up to 6 AM 07/19/19 06:00 Intake Total 1270 ml Output Total 0 ml Balance 1270 ml Laboratory Data Labs 24H Laboratory Tests 2 07/18/19 20:56: Bedside Glucose (Misc Panel) 121H 07/19/19 05:57: Nucleated Red Blood Cells % (auto) 0.0, Prothrombin Time 18.4H, Prothromb Time International Ratio 1.56, Anion Gap 5L, Glomerular Filtration Rate 39.9L, Calcium Level 9.2, Phosphorus Level 3.3, Magnesium Level 2.2 07/19/19 11:38: Bedside Glucose (Misc Panel) 150H CBC/BMP Laboratory Tests 07/19/19 05:57 FSBS Laboratory Tests Test 07/18/19 20:56 07/19/19 11:38 Range/Units Bedside Glucose (Misc Panel) 121 150 70-105 MG/DL Discharge Medications Scheduled Atenolol (Atenolol) 100 Mg Tablet, 100 MG PO DAILY, (Reported) Atorvastatin Calcium (Atorvastatin Calcium) 40 Mg Tablet, 40 MG PO QHS, (Reported) B1/B2/Niacin/B12/Protease (B-Complex with B-12 Tablet) 1 Each Tablet, 1 TAB PO DAILY, (Reported) Dulaglutide (Trulicity) 1.5 Mg/0.5 Ml Pen.injctr, 1.5 MG SC Q7D, (Reported) TAKES ON TUESDAY Fenofibrate Nanocrystallized (Fenofibrate) 145 Mg Tablet, 145 MG PO QHS, (Reported) Folic Acid (Folic Acid) 0.4 Mg Tablet, 400 MCG PO DAILY, (Reported) Furosemide (Lasix) 20 Mg Tablet, 1 TAB PO DAILY Gabapentin (Gabapentin) 300 Mg Capsule, 300 MG PO BID, (Reported) Glimepiride (Glimepiride) 2 Mg Tablet, 2 MG PO DAILY, (Reported) Magnesium Chloride (Slow-Mag) 71.5 Mg Tablet.dr, 71.5 MG PO DAILY, (Reported) Pantoprazole Sodium (Protonix) 40 Mg Tablet.dr, 1 TAB PO DAILY Potassium Chloride (Potassium Chloride) 10 Meq Tablet.er, 10 MEQ PO DAILY, (Reported) Sitagliptin Phosphate (Januvia) 100 Mg Tablet, 100 MG PO DAILY, (Reported) Allergies Coded Allergies: Penicillins (Verified Adverse Reaction, Intermediate, 07/15/19) HYPERVENTILATION DAVID SADLER MD Jul 19, 2019 18:23
== END 2019-07-19 14:02 | disposition home or self-care (01) | DRG 661 ==
LOC: M PCU 21:17 → M MSPAV 23:35
PROVIDERS: ADMIT Internal Medicine; ATTEND Internal Medicine
PROC: 30233K1 Transfusion of Nonautologous Frozen Plasma into Peripheral Vein, Percutaneous Approach (ICD-10-PCS; 2019-07-16)
PROC: 0DB98ZX Excision of Duodenum, Via Natural or Artificial Opening Endoscopic, Diagnostic (ICD-10-PCS; principal; 2019-07-17 15:00)
PROC: 0DBK8ZX Excision of Ascending Colon, Via Natural or Artificial Opening Endoscopic, Diagnostic (ICD-10-PCS; 2019-07-18)
PROC: 0DBL8ZX Excision of Transverse Colon, Via Natural or Artificial Opening Endoscopic, Diagnostic (ICD-10-PCS; 2019-07-18)
DX: D68.32 Hemorrhagic disorder due to extrinsic circulating anticoagulants (principal); K92.0 Hematemesis; I11.0 Hypertensive heart disease with heart failure; K92.2 Gastrointestinal hemorrhage, unspecified; D62 Acute posthemorrhagic anemia; I50.9 Heart failure, unspecified; Z79.01 Long term (current) use of anticoagulants; Z86.718 Personal history of other venous thrombosis and embolism; Z79.899 Other long term (current) drug therapy; Z88.0 Allergy status to penicillin; Z86.73 Personal history of transient ischemic attack (TIA), and cerebral infarction without residual deficits; E11.9 Type 2 diabetes mellitus without complications; E78.5 Hyperlipidemia, unspecified; F17.200 Nicotine dependence, unspecified, uncomplicated; K21.9 Gastro-esophageal reflux disease without esophagitis; K29.80 Duodenitis without bleeding; D12.3 Benign neoplasm of transverse colon; D12.2 Benign neoplasm of ascending colon; K57.30 Diverticulosis of large intestine without perforation or abscess without bleeding; K64.8 Other hemorrhoids

== ENCOUNTER → 2019-08-06 | Outpatient (CLI) | payer BC ==
[~2019-08-06] MED LIST: ATEN100T PO; ATOR40TA75 PO; B-COTAB25 PO; FENO145T7 PO; FOLI400T PO; GABA-843 PO; GLIM2TAB4 PO; JANU100T PO; LASI20TA3 PO; PATIENT COMMENTS; POTA1TAB23 PO; PROT1TAB2 PO; SLOWTAB2 PO; TRUL0.5I SC
[2019-08-06 10:09] LABS: IRON (FE) 42 UG/DL (50-170); PERCENT SATURATION 7.9 % (13.2-45.0); TOTAL IRON BINDING CAPACITY 529 UG/DL (250-450)
[2019-08-06 10:23] LABS: VITAMIN B12 LEVEL 602 PG/ML
[2019-08-06 10:24] LABS: FOLATE > 24.0 NG/ML
== END ==
LOC: M LAB 08:42
PROVIDERS: ATTEND Internal Medicine Gastroenterology
DX: D64.9 Anemia, unspecified (principal)

== ENCOUNTER → 2019-08-07 | Outpatient (CLI) | payer BC ==
--- NOTE | 2019-08-07 15:40 | REP ---
ABDOMINAL SERIES: Supine and erect views of the abdomen demonstrate no free air and no evidence for bowel obstruction. There is mild to moderate diffuse fecal material in the colon. Metallic clips are seen in the right upper quadrant. A metallic device is seen in the left mid abdomen measuring 1.7 cm in maximum diameter. There are diffuse moderate degenerative changes of the spine. Electronically Signed by Samuel Ferrera MD 08/07/2019 08:21 P
== END ==
LOC: M RAD 13:11
PROVIDERS: ATTEND Internal Medicine Gastroenterology
DX: T18.3XXA Foreign body in small intestine, initial encounter (principal); T18.4XXA Foreign body in colon, initial encounter

== ENCOUNTER → 2019-08-15 | Outpatient (CLI) | payer BC ==
--- NOTE | 2019-08-15 14:37 | REP ---
ABDOMEN: Supine and erect views of the abdomen are performed. There is no free air or obstruction. The metallic foreign body in the GI tract which was previously seen in the left mid abdomen is now seen in the right upper quadrant. It appears to overlie the hepatic flexure of the colon and is likely within the colon at that point. There are adjacent metallic clips in the gallbladder fossa. Rounded density in the left upper quadrant probably represents and ingested medication tablet. There are degenerative changes of the spine. IMPRESSION: Foreign body appears to be located in the hepatic flexure of the colon. Electronically Signed by Samuel Ferrera MD 08/15/2019 04:14 P
== END ==
LOC: M RAD 12:58
PROVIDERS: ATTEND Internal Medicine Gastroenterology
DX: T18.4XXA Foreign body in colon, initial encounter (principal); T18.3XXA Foreign body in small intestine, initial encounter

== ENCOUNTER → 2019-09-07 | Outpatient (CLI) | payer BC ==
[~2019-09-07] MED LIST changes: +E-Z-PAQUE 96% w/w SUSP 176GM BTL As Ordered ONE
--- NOTE | 2019-09-07 17:19 | REP ---
Small bowel follow-through The procedure was performed under the direct supervision of Dr. Ferrera. The images were reviewed with Dr. Ferrera. The oracle distribution consultant film shows no organomegaly or pathological masses. The intestinal gas pattern is nonspecific. There are surgical clips noted in the right upper quadrant. There is a density over the left pelvis which likely represents an ingested pill. Liquid barium was administered and the barium column was followed through the small bowel to the level of the terminal ileum. Small bowel transit time is approximately 5 hours and 30 minutes . During fluoroscopy gentle palpation shows all loops are freely movable and pliable. There are no fixed or angulated loops. The small bowel mucosal pattern is normal in course and caliber. There is no transition to suggest a partial small bowel obstruction. Spot filming of the terminal ileum shows it to be unremarkable. Impression: Small bowel follow-through examination within normal limits. 1 minute of fluoro time was utilized for this procedure. Electronically Signed by ONOFRE Pitts 09/07/2019 04:56 P Electronically Signed by Samuel Ferrera MD 09/07/2019 05:09 P
== END ==
LOC: M RAD 08:21
PROVIDERS: ATTEND Internal Medicine Gastroenterology
DX: D50.9 Iron deficiency anemia, unspecified (principal)

== ENCOUNTER → 2024-10-24 | Outpatient (REF) | payer OTHER ==
[~2024-10-24] MED LIST changes: -E-Z-PAQUE 96% w/w SUSP 176GM BTL As Ordered ONE; -FOLI400T PO; +FOLI400T13 PO; +GABA-1172 PO; -GABA-843 PO
== END ==
LOC: M SFHCADAM 09:07
PROVIDERS: ATTEND Physician Assistant
DX: D48.5 Neoplasm of uncertain behavior of skin (principal)

== ENCOUNTER → 2024-10-24 | Outpatient (REF) | payer OTHER | LOC: M SFHCDERM 09:08 | PROVIDERS: ATTEND Physician Assistant | DX: C44.619 Basal cell carcinoma of skin of left upper limb, including shoulder (principal) ==

== ENCOUNTER → 2024-12-13 | Outpatient (REF) | payer OTHER | LOC: M SFHCDERM 08:41 | PROVIDERS: ATTEND Physician Assistant | DX: C44.619 Basal cell carcinoma of skin of left upper limb, including shoulder (principal) ==

== ENCOUNTER → 2024-12-28 | Outpatient (REF) | payer OTHER | LOC: M SFHCDERM 17:00 | PROVIDERS: ATTEND Physician Assistant | DX: T14.90XD Injury, unspecified, subsequent encounter (principal) ==